=== PATIENT | male | born 2000 | race African-American/Black ===

== ENCOUNTER 2020-06-27 08:34 | Inpatient (IN) ==
[2020-06-27 08:43] VITALS: BMI 20.7
[2020-06-27] MEDS ORDERED: ATIVAN INJ 2 MG VIAL ONE (09:04)
[2020-06-27] MEDS ORDERED: ATIVAN INJ 2 MG VIAL IVP ONE (09:08)
[2020-06-27 09:12] LABS: BILIRUBIN,URINE NEGATIVE (NEGATIVE); BLOOD/HEMOGLOBIN,URINE 5+ (NEGATIVE); GLUCOSE, URINE NEGATIVE (NEGATIVE); KETONES,URINE 3+ (NEGATIVE); LEUKOCYTE ESTERASE ,URINE NEGATIVE (NEGATIVE); NITRITES,URINE NEGATIVE (NEGATIVE); PROTEIN,URINE 3+ (NEGATIVE); UROBILINOGEN,URINE NORMAL (NORMAL)
--- NOTE | 2020-06-27 09:12 | DR.EXTPAIN ---
HPI Time seen Time Seen by Provider: 06/27/20 09:10 PCP Primary Care Physician: MED HPI Comment HPI Comment: PATIENT IS 20YR OLD MALE IN ER WITH POSSIBLE SEIZURE AND SWOLLEN TONGUE. PATIENT FOUND ON FLOOR IN POOL OF BLOOD IN HIS CELL AT [facility]. NO SE IZURE WITNESS. IN ER, PATIENT HAVING SEIZURE NOTED FEW TIMES. HE IS ALERT BETWEEN SEIZURE.HE HAVE BEING DEPRESS IN [facility] FROM OF HIS [id number] MEMBER. Complaint/Symptoms Chief Complaint Doctor Comments: SWOLLEN TONGUE, PSSIBLE SEIZURE. Chief Complaint:: PT BROUGHT IN BY EMS FROM [facility]. PT WAS ON SUICIDE WATCH AT [facility] AND APPARENTLY HAD BEEN VERY DEPRESSED SINCE THE RECENT PASSING OF A FAMILY MEMEBER. PT BIT HIS LIP AND TONGUE AND WAS REPORTED TO BE LAYING IN A POOL OF BLOOD IN HIS CELL SINCE 1 AM. PT CURRENTLY JUST MOANING AND WILL NOT SPEAK. COVID-19 Coronavirus risk:travel/contact w/high risk person: No Has patient experienced Coronavirus symptoms: No Nurses notes reviewed Nurses Notes Review: Yes Source History Provided: EMS Mode of arrival Mode of Arrival: Wheelchair Timing Onset of Chief Complaint: 06/27/20 Context History of: None Associated signs and symptoms Associated Signs and Symptoms: Pain and Swelling PMH PMH Past Medical History: Yes Past Medical History: Depression Past Surgical History: No Surgical History: Unknown Family History History of Family Medical Conditions: No Family Medical History: Diabetes Mellitus Social History Does patient currently use any type of tobacco product: No Have you used tobacco products in the last 12 months: No Type of Tobacco Use: None Does any household member use tobacco: No Alcohol Use: None Do you use any recreational Drugs:: No Lives With: Other Travel Risk Coronavirus risk:travel/contact w/high risk person: No Has patient experienced Coronavirus symptoms: No Infectious screening In the last 2 months have you had wt loss of >10#?: NO Have you had fever, night sweats or hemotysis?: No Have you traveled outside the country in the last 6 months?: No Isolation: Standard ROS Review of Systems Constitutional: See HPI and Fatigue; negative Fever and Weakness Eyes: No Symptoms Reported and See HPI ENTM: No Symptoms Reported and See HPI; negative Nose Discharge and Nose Congestion Respiratoy: No Symptoms Reported and See HPI; negative Moist Cough, Short of Breath and Wheezing Cardiovascular: No Symptoms Reported, See HPI and Palpitations; negative Chest Pain and Edema Gastrointestinal/Abdominal: No Symptoms Reported and See HPI; negative Abdominal Pain, Diarrhea and Vomiting Genitourinary: No Symptoms Reported and See HPI Neurological: No Symptoms Reported, See HPI and Seizure Musculoskeletal: No Symptoms Reported and See HPI Integumentary: No Symptoms Reported, See HPI and Change in Color (BRUISED TONGUE WITH SWELLING.); negative Rash and Juandice Hematologic/Lymphatic: No Symptoms Reported and See HPI; negative Easy Bruising and Swollen Glands Endocrine: No Symptoms Reported and See HPI Psychiatric: See HPI, Depression and Suicidal (RECENT SUICIDAL IDEATIONS.) All Other Systems: Reviewed and Negative Unable to Obtain Due To: Altered mental status PE Vital Signs Vitals: Temperature 98.1 F Pulse Rate 118 Respiratory Rate 19 Blood Pressure 106/58 O2 Sat by Pulse Oximetry 100 General Limitations: Altered Mental Status General Appearance: Alert and In No Apparent Distress Head Head Exam: Normal Inspection and Other (TONGUE SWOLLEN AND BRUISED.) Eyes Eye exam: Normal Appearance and PERRL; negative Scleral Icterus and Conjunctival Injection ENT ENT Exam: Normal Exam, Normal Oropharynx, Normal External Ear Exam and TM's Normal Bilaterally Neck Neck Exam: Normal Inspection and Trachea Midline; negative Tenderness and Lymphadenopathy Chest Chest Inspection: Normal Inspection and Symmetric Chest Wall Rise; negative Tenderness Respiratory Respiratory Exam: Normal Lung Sounds Bilat; negative Accessory Muscle Use, Chest Wall Tenderness and Respiratory Distress Respiratory Exam: Bilateral: Clear to Auscultation Cardiovascular Cardiovascular Exam: Normal Rhythm, Tachycardia and Normal Heart Sounds; negative Systolic Murmur and Diastolic Murmur Abdominal Exam Abdominal Exam: Normal Inspection, Normal Bowel Sounds and Soft; negative Tenderness Extremities Extremities Exam: Normal Inspection Back Back Exam: Normal Inspection; negative Paraspinal Tenderness Neurological Neurological Exam: Alert; negative CN II-XII Intact Psychiatric Psychiatric Exam: Agitated and Anxious Skin Skin Exam: Erythema MDM Differential Diagnosis Differential Diagnosis: Contusion, Fracture, Laceration, Sprain and Other (SEIZURE, MACROGLOSSIA.) COURSE Treatment Treatment: SEE ORDERS. ATIVAN 2MG IV, CEREBYX 1GM IVPB, NS 1L IV BOLUS AND TYLENOL 1GM IVPB IN ER. PATIENT BETTER BUT TONGUE STILL SWOLLEN. WILL ADMIT TO HOSPITAL FOR OBSERVATION. Consultation Consultation Comments: DISCUSSED PATIENT WITH DR. LO. HE WILL ADMIT PATIENT. Education/Counseling Education/Counseling: Patient Educated On: Diagnosis ROR Labs Reviewed Laboratory Results Reviewed?: Yes Result Diagrams: 06/27/20 08:55 06/27/20 08:55 Laboratory: WBC 18.9 X10^3/uL (3.6-10.0) H 06/27/20 08:55 RBC 4.88 X10^6/uL (4.7-6.0) 06/27/20 08:55 Hgb 15.1 g/dL (13.5-18.0) 06/27/20 08:55 Hct 44.9 % (42.0-54.0) 06/27/20 08:55 MCV 92.2 fL (80.0-100.0) 06/27/20 08:55 MCH 30.9 pg (27.0-34.0) 06/27/20 08:55 MCHC 33.6 g/dL (33.0-35.0) 06/27/20 08:55 RDW 13.0 % (11.6-16.5) 06/27/20 08:55 Plt Count 246 X10^3/uL (150.0-450.0) 06/27/20 08:55 MPV 9.1 fL (7.4-11.0) 06/27/20 08:55 Neut % (Auto) 85.2 % (42.0-75.0) H 06/27/20 08:55 Lymph % (Auto) 3.5 % (21.0-51.0) L 06/27/20 08:55 [place] % (Auto) 10.9 % (0.0-13.0) 06/27/20 08:55 Eos % (Auto) 0.0 % (0.9-2.9) L 06/27/20 08:55 Baso % (Auto) 0.4 % (0.2-1.0) 06/27/20 08:55 Neut # (Auto) 16.1 x10^3/uL (2.2-4.8) H 06/27/20 08:55 Lymph # (Auto) 0.7 X10^3/uL (1.3-2.9) L 06/27/20 08:55 [place] # (Auto) 2.1 x10^3/uL (0.3-0.8) H 06/27/20 08:55 Eos # (Auto) 0.0 x10^3/uL (0.0-0.2) 06/27/20 08:55 Baso # (Auto) 0.1 X10^3/uL (0.0-0.1) 06/27/20 08:55 Absolute Nucleated RBC 0.0 /100WBC 06/27/20 08:55 Sodium 147 mmol/L (136-145) H 06/27/20 08:55 Corrected Sodium TNP 06/27/20 08:55 Potassium 4.3 mmol/L (3.5-5.1) 06/27/20 08:55 Chloride 108 mmol/L (98-107) H 06/27/20 08:55 Carbon Dioxide 14.8 mmol/L (21-32) L* 06/27/20 08:55 BUN 19 mg/dL (7-18) H 06/27/20 08:55 Creatinine 1.73 mg/dL (0.70-1.30) H 06/27/20 08:55 Est GFR (MDRD) Af Amer > 60 (>60) 06/27/20 08:55 Est GFR (MDRD) Non-Af 53 (>60) L 06/27/20 08:55 Glucose 107 mg/dL (65-99) H 06/27/20 08:55 Calcium 9.7 mg/dL (8.5-10.1) 06/27/20 08:55 Corrected Calcium TNP 06/27/20 08:55 Total Bilirubin 1.00 mg/dL (0.2-1.0) 06/27/20 08:55 AST 108 Units/L (15-37) H 06/27/20 08:55 ALT 41 Units/L (12-78) 06/27/20 08:55 Alkaline Phosphatase 77 Units/L (46-116) 06/27/20 08:55 Creatine Kinase 6275 Units/L (39-308) H 06/27/20 13:05 CK-MB (CK-2) 57.1 ng/mL (0-4.0) H* 06/27/20 13:05 CK/CKMB % Calc 0.9 % (<4) 06/27/20 13:05 Troponin I 0.12 ng/mL (0-1.5) 06/27/20 15:21 Total Protein 8.3 g/dL (6.4-8.2) H 06/27/20 08:55 Albumin 4.5 g/dL (3.4-5.0) 06/27/20 08:55 Globulin 3.8 g/dL (2.5-4.5) 06/27/20 08:55 Albumin/Globulin Ratio 1.2 Ratio (1.1-2.1) 06/27/20 08:55 Specimen Type Catherized urine 06/27/20 09:02 Urine Color Yellow (YELLOW) 06/27/20 09:02 Urine Appearance Hazy (CLEAR) 06/27/20 09:02 Urine pH 5.0 (5.0 - 8.0) 06/27/20 09:02 Ur Specific [place] 1.030 (1.000-1.030) 06/27/20 09:02 Urine Protein 3+ (NEGATIVE) 06/27/20 09:02 Urine Glucose (UA) Negative (NEGATIVE) 06/27/20 09:02 Urine Ketones 3+ (NEGATIVE) 06/27/20 09:02 Urine Occult Blood 5+ (NEGATIVE) 06/27/20 09:02 Urine Nitrite Negative (NEGATIVE) 06/27/20 09:02 Urine Bilirubin Negative (NEGATIVE) 06/27/20 09:02 Urine Urobilinogen Normal (NORMAL) 06/27/20 09:02 Ur Leukocyte Esterase Negative (NEGATIVE) 06/27/20 09:02 Urine RBC 5-10 /HPF (0-3) A 06/27/20 09:02 Urine WBC None seen /HPF (0-5) 06/27/20 09:02 Ur Squamous Epith Cells Rare /HPF (NEGATIVE) 06/27/20 09:02 Urine Bacteria Trace /HPF (NEGATIVE) 06/27/20 09:02 Urine Mucus Few /HPF (NEGATIVE) 06/27/20 09:02 Ur Culture Indicated? No/not indicated 06/27/20 09:02 Urine Opiates Screen Negative (NEG=<300) 06/27/20 09:02 Urine Methadone Screen Negative (NEG=<300) 06/27/20 09:02 Ur Barbiturates Screen Negative (NEG=<200) 06/27/20 09:02 Ur Phencyclidine Scrn Negative (NEG=<25) 06/27/20 09:02 Ur Amphetamines Screen Negative (NEG=<1000) 06/27/20 09:02 U Benzodiazepines Scrn Negative (NEG=<200) 06/27/20 09:02 Urine Cocaine Screen Negative (NEG=<300) 06/27/20 09:02 U Marijuana (THC) Screen Negative (NEG=<50) 06/27/20 09:02 SARS CoV-2 RNA Rapid CONOR Negative (NEGATIVE) 06/27/20 14:41 XRAY XRAY Interpreted by: Radiologist (REPORT NOTED AND DISCUSSED WITH PATIENT.) and Self EKG Rate: 116 [place]: Normal Rhythm: ST Block: None Hypertrophy: None ST: Nonsp Opioid Opioid Risk Tool Age (Gregorio box if 16-45): Yes History of Preadolescent Sexual Abuse: No Total: 1 Total Score Risk Category: Low Risk Copyright: [employer] ALMARAZ predicting aberrant behaviors Diagnosis Discharge Problem: Seizure, Contusion of multiple sites, Macroglossia Contusion of face, scalp and neck Qualifiers: Encounter type: initial encounter Qualified Code(s): S00.83XA - Contusion of other part of head, initial encounter Rhabdomyolysis Qualifiers: Rhabdomyolysis type: non-traumatic Qualified Code(s): M62.82 - Rhabdomyolysis
[2020-06-27 09:14] LABS: APPEARANCE,URINE HAZY (CLEAR); COLOR,URINE YELLOW (YELLOW)
[2020-06-27 09:26] LABS: BASOPHILS # (AUTO) 0.1 X10^3/uL (0.0-0.1); BASOPHILS % (AUTO) 0.4 % (0.2-1.0); HEMATOCRIT 44.9 % (42.0-54.0); HEMOGLOBIN 15.1 g/dL (13.5-18.0); LYMPHOCYTES # (AUTO) 0.7 X10^3/uL (1.3-2.9); LYMPHOCYTES % (AUTO) 3.5 % (21.0-51.0); MEAN CORPUSCULAR HEMOGLOBIN 30.9 pg (27.0-34.0); MEAN CORPUSCULAR HGB CONC 33.6 g/dL (33.0-35.0); MEAN CORPUSCULAR VOLUME 92.2 fL (80.0-100.0); MEAN PLATELET VOLUME 9.1 fL (7.4-11.0); MONOCYTES # (AUTO) 2.1 x10^3/uL (0.3-0.8); MONOCYTES % (AUTO) 10.9 % (0.0-13.0); NEUTROPHILS # (AUTO) 16.1 x10^3/uL (2.2-4.8); NEUTROPHILS % (AUTO) 85.2 % (42.0-75.0); PLATELET COUNT 246 X10^3/uL (150.0-450.0); RED BLOOD COUNT 4.88 X10^6/uL (4.7-6.0); WHITE BLOOD COUNT 18.9 X10^3/uL (3.6-10.0)
[2020-06-27 09:29] LABS: BACTERIA,URINE TRACE /HPF (NEGATIVE); SQUAMOUS EPITHELIAL CELL,UR RARE /HPF (NEGATIVE)
[2020-06-27 09:30] LABS: MUCUS,URINE FEW /HPF (NEGATIVE)
[2020-06-27 09:31] LABS: BLOOD UREA NITROGEN 19 mg/dL (7-18); CALCIUM 9.7 mg/dL (8.5-10.1); CHLORIDE 108 mmol/L (98-107); CREATININE 1.73 mg/dL (0.70-1.30); SODIUM 147 mmol/L (136-145); eGFR NON BLACK RACES 53 (>60)
[2020-06-27 09:35] LABS: ALANINE AMINOTRANSFERASE 41 Units/L (12-78); ALBUMIN 4.5 g/dL (3.4-5.0); ALKALINE PHOSPHATASE 77 Units/L (46-116); ASPARTATE AMINO TRANSFERASE 108 Units/L (15-37); TOTAL PROTEIN 8.3 g/dL (6.4-8.2)
[2020-06-27 09:37] LABS: CARBON DIOXIDE 14.8 mmol/L (21-32)
--- NOTE | 2020-06-27 09:51 | RAD ---
HISTORYPatient found lying in a pool of bloodSTUDYCHEST, 1 VIEWCOMPARISONNoneFINDINGSHeart size and pulmonary vasculature normal. Lungs are clear with no infiltrate or significant effusion on either side. Bony thorax is unremarkable.IMPRESSIONNo acute cardiopulmonary abnormality is seen on this examElectronically signed by: CLARISA ATKINS (Jun 27, 2020 09:49:39)
--- NOTE | 2020-06-27 09:52 | CT ---
HISTORY:Pain, trauma, found downStudy: CT cervical spine without contrastComparison:NoneTechnique: Multiple axial images of the cervical spine were obtained from the skull base to the thoracic inlet without administration of IV contrast. Sagittal and coronal reformats were performed and reviewed. Dose reduction techniques including Automated Exposure Control (AEC) and adjustment of mA and kV were utilized.Findings:Normal cervical alignment. Vertebral body heights are preserved. The disc spaces appear normal. The posterior elements are intact. No evidence of acute fracture or dislocation.The odontoid process and occipital condyles are intact.The visualized prevertebral and paraspinal soft tissues appear normal. The visualized lung apices are clear.IMPRESSION:1. No acute osseous abnormality of the cervical spine.Electronically signed by: JAY JAY MEYER (Jun 27, 2020 09:51:13)
--- NOTE | 2020-06-27 09:53 | CT ---
HISTORYPatient was found lying in a pool of bloodSTUDYCT of the brain without contrastCOMPARISONNoneTECHNIQUEAxial imaging was performed from the vertex to the base of skull without intravenous contrast being administered. Sagittal and coronal reformations were generated. Automated exposure control techniques were used with this exam.FINDINGSPatient is been position asymmetrically in the CT gantry.Posterior fossa and supratentorial region demonstrate no evidence of intracranial hemorrhage or extracerebral fluid collections. Ventricles are symmetric in size and position with no mass effect seen. Normal arroyo-white matter differentiation is maintained. On the bone windows, no acute bony abnormality is seen. Visualized aspect of the paranasal sinuses and mastoid air cells are clear.IMPRESSIONUnremarkable head CT with no acute intracranial abnormality seen.Electronically signed by: CLARISA ATKINS (Jun 27, 2020 09:51:53)
--- NOTE | 2020-06-27 09:53 | CT ---
HISTORYFacial traumaSTUDYMaxillofacial CT without contrastTechnique: Axial noncontrast images with coronal and sagittal reformats. Dose reduction procedures were used with mA/kv adjusted for body size.COMPARISONNoneFINDINGSThere is no evidence for mandibular, nasal, maxillofacial, or orbital fracture. Nasal septum appears intact and midline. The sinuses appear clear. The globes are intact. The retro-orbital soft tissues are normal.IMPRESSIONNo fractures identifiedElectronically signed by: SOPHIE WILLIS (Jun 27, 2020 09:51:33)
[2020-06-27] MEDS ORDERED: ATIVAN INJ 2 MG VIAL IVP SCH (10:00)
[2020-06-27 10:02] LABS: TROPONIN I 0.04 ng/mL (0-1.5)
[2020-06-27 10:04] LABS: CREATINE KINASE MB 70.7 ng/mL (0-4.0)
[2020-06-27] MEDS ORDERED: NS 1000 ML 1,000 ML ONE ×2 (10:18→12:32)
[2020-06-27] MEDS ORDERED: NS 1000 ML 1,000 ML IV ONE (10:19)
[2020-06-27] MEDS ORDERED: NS 100 ML IV 100 ML IV ONE (10:19)
[2020-06-27] MEDS ORDERED: CEREBYX INJ ONE (10:19)
[2020-06-27] MEDS ORDERED: CEREBYX INJ 1,000 MG in NS 50 ML IV 50 ML IV SCH (10:20)
[2020-06-27] MEDS: NS 1000 ML 1,000 ML IV SCH ×2 (13:39→22:10)
[2020-06-27 13:58] LABS: TROPONIN I 0.12 ng/mL (0-1.5)
[2020-06-27 13:59] LABS: CKMB % 0.9 % (<4)
[2020-06-27 14:00] LABS: CREATINE KINASE MB 57.1 ng/mL (0-4.0)
[2020-06-27] MEDS ORDERED: OFIRMEV IV 1000 MG VIAL 1,000 MG/100 ML VIAL IV PRN (18:45)
[2020-06-27 21:01] VITALS: BP 110/68
== END 2020-06-27 22:15 | disposition left against medical advice (07) | DRG 159 ==
LOC: ER 08:34 → MED/SURG 17:58
PROVIDERS: ADMIT Internal Medicine; ATTEND Internal Medicine
DX: S01.551A Open bite of lip, initial encounter; Z20.822 Contact with and (suspected) exposure to COVID-19; S01.552A Open bite of oral cavity, initial encounter; Z53.29 Procedure and treatment not carried out because of patient's decision for other reasons; X58.XXXA Exposure to other specified factors, initial encounter